=== PATIENT | female | born 1940 | race Caucasian/White ===

== ENCOUNTER 2019-02-14 20:24 | Emergency (ER) | payer MEDICARE, BC ==
[~2019-02-14] VITALS: Ht 157.5 cm; Wt 80.9 kg
[~2019-02-14 20:24] MED LIST: ACETAMINOPHEN500 M1 PO; ACULAR 0.5 % OPH5 ML EACH EYE; BACTROBAN NASAL1 GM NS; BENADRYL INJ50 MG/ML IV; COLACE100 MG; COLACE100 MG PO; DILAUDID INJ2 MG/ML IV; DULCOLAX10 MG/SUPP RC; ENDOCET 10-3251 TAB PO; LASIX20 MG PO; LEVOTHROID25 MCG PO; LUNESTA2 M1 PO; MIRALAX17 GM PO; MULTI-DAY VITAM1 TAB PO; NARCAN INJ0.4 MG/ML IV; NORCO 10/325 TA1 TA1 PO; NORVASC2.5 MG PO; ONDANSETRON4 MG/2 M3 IV; OXYCONTIN20 MG PO; PERCOCET 5/3251 TA1 PO; ROXICODONE15 MG OR; SENOKOT-S TABLE1 TAB PO; STOOL SOFTENER240 MG PO; TRANDATE300 MG PO; TUMS500 MG PO; VITAMIN D50000 UNIT PO; XANAX0.25 MG PO; XARELTO10 MG PO; ZOLOFT50 MG PO
[2019-02-14 20:32] VITALS: Ht 157.5 cm; Wt 80.9 kg
[2019-02-14 21:04] LABS: BASOPHILS 0.4 % (0-2); EOSINOPHILS 4.9 % (0-7); HEMATOCRIT 34.6 % (36.0-48.0); HEMOGLOBIN 11.1 g/dL (12-16); IMMATURE GRANULOCYTES 0.4 % (0-5); LYMPHOCYTES 24.5 % (15-50); MCH 26.2 pg (26.0-34.0); MCHC 32.1 g/dL (31.0-37.0); MCV 81.6 fL (80.0-100.0); MEAN PLATELET VOLUME 10.2 fL (7.4-10.4); MONOCYTES 7.9 % (2-11); NEUTROPHILS 61.9 % (40-80); PLATELET COUNT 208 10x3/uL (130-400); RBC 4.24 10x6/uL (4.00-5.40); RDW 14.7 % (11.5-14.5); WBC 5.6 10x3/uL (4.8-10.8)
[2019-02-14 21:13] LABS: APTT 26.2 SECONDS (22.8-39.4); INR 0.95 (0.85-1.17); PROTIME 12.2 SECONDS (11.6-15.0)
[2019-02-14 21:22] LABS: ALBUMIN 3.4 g/dL (3.4-5.0); ALKALINE PHOSPHATASE 102 U/L (46-116); ALT (SGPT) 26 U/L (10-68); BILIRUBIN - TOTAL 0.36 mg/dL (0.2-1.3); CALC OSMOLALITY 284 mosm/kg (275-300); CALCIUM 9.2 mg/dL (8.5-10.1); CARBON DIOXIDE 28.7 mmol/L (21.0-32.0); CHLORIDE - SERUM 104 mmol/L (98-107); CREATININE - SERUM 1.5 mg/dL (0.6-1.3); GLUCOSE 98 mg/dL (74-106); POTASSIUM - SERUM 4.3 mmol/L (3.5-5.1); PROTEIN - SERUM 6.9 g/dL (6.4-8.2); SODIUM 140 mmol/L (136-145); UREA NITROGEN 30 mg/dL (7-18); eGFR NON AFRICAN AMERICAN 35 mL/min (90-120)
[2019-02-14 21:33] LABS: CKMB 1.6 U/L (0.0-3.6); CREATINE KINASE 73 UL (21-215); MAGNESIUM - SERUM 1.8 mg/dL (1.8-2.4); THYROID STIMULATING HORMONE 3.84 uIU/mL (0.36-3.74)
[2019-02-14 21:35] LABS: TROPONIN-I < 0.017 ng/mL (0.000-0.060)
[2019-02-14] MEDS ORDERED: ANTIVERT12.5 MG PO (23:42)
[2019-02-14 23:59] VITALS: BP 175/58
== END 2019-02-14 23:59 | disposition home or self-care (01) ==
LOC: D.ER 20:24
PROVIDERS: Family Medicine
DX: E86.0 Dehydration (principal); H81.10 Benign paroxysmal vertigo, unspecified ear; R42 Dizziness and giddiness

== ENCOUNTER → 2019-03-01 13:44 | Outpatient (CLI) | payer MEDICARE, BC ==
[2019-02-14 20:32] VITALS: BMI 32.6
[~2019-03-01 13:44] MED LIST changes: +ANTIVERT12.5 MG PO
== END | disposition home or self-care (01) ==
LOC: D.US 02-25 14:00
PROVIDERS: ATTEND Nurse Practitioner Family
DX: I12.9 Hypertensive chronic kidney disease with stage 1 through stage 4 chronic kidney disease, or unspecified chronic kidney disease (principal); N18.3 Chronic kidney disease, stage 3 (moderate)